=== PATIENT | female | born 1990 ===

== ENCOUNTER 2019-06-19 13:11 | Outpatient (CLI) | payer MEDICAID ==
--- NOTE | 2019-06-19 17:30 | Consultation ---
DATE OF CONSULTATION: 06/19/2019 CONSULTING PHYSICIAN: Leoncio Obrien M.D. CHIEF COMPLAINT: Abdominal pain. HISTORY OF PRESENT ILLNESS: This is a pleasant 29-year-old female without any significant past medical history, presented to us with complaint of chronic lower quadrant abdominal pain. , but sometimes gets worse. The patient cannot pinpoint exactly what makes it worse. Apparently she has been admitted to the emergency room few times and a CT of the abdomen and pelvis was negative. She has been seen by the lens silverer and the pelvic examination showed to be negative. The patient apparently was diagnosed with possible irritable bowel syndrome by the primary care physician and was given treatment for that, which did not work. The patient is referred to us for evaluation of right lower quadrant abdominal pain. PAST MEDICAL HISTORY: None. PAST SURGICAL HISTORY: None. MEDICATIONS: None. FAMILY HISTORY: Noncontributory. SOCIAL HISTORY: The patient denies any tobacco, alcohol, or drug abuse. PHYSICAL EXAMINATION: GENERAL: Well-developed female, in no acute distress. HEENT: Normocephalic, atraumatic. Sclerae anicteric. NECK: Supple. No evidence of obvious lymphadenopathy. CARDIOVASCULAR: Regular rate and rhythm. Plus S1 and S2. No obvious murmur. LUNGS: Clear to auscultation bilaterally. ABDOMEN: Positive bowel sounds. Soft. Minimal tenderness to palpation in right lower quadrant. No rebound. No guarding. No peritoneal sign. EXTREMITIES: No cyanosis, no clubbing, no edema. ASSESSMENT AND PLAN: This is a 29-year-old female with persistent right lower quadrant abdominal pain with negative workup with other physicians. The patient had a pelvic examination by SALES REPRESENTATIVE, which has been negative. The patient had a CT of the abdomen and pelvis in the ER, which was negative. She has been tried for treatment for IBS by the primary care physician, which has not helped her. Plan will be to do a colonoscopy to rule out colitis, Crohn disease of terminal ileum or right colon causing her symptoms. The patient was given information about colonoscopy. Risks and benefits of procedure were explained to her. She was given the prep and we will schedule when authorization is obtained. Leoncio Vosoghi, M.D. DR: [place] JOB#: [id number] CC:
[2019-06-24] MEDS ORDERED: IBGARD90 MG PO (14:17)
[2019-06-24] MEDS ORDERED: IMODIUM2 MG ORAL (14:17)
[2019-06-24] MEDS ORDERED: FERROUS SULFAT325 MG ORAL (14:17)
[2019-06-24] MEDS ORDERED: PAMELOR10 MG ORAL (14:17)
[2019-06-24] MEDS ORDERED: PRENATABS RX T1 EACH PO (14:17)
[2019-06-24] MEDS ORDERED: DICYCLOMINE HCL10 MG ORAL (14:17)
== END 2019-06-19 15:11 | disposition home or self-care (01) ==
LOC: PAN 13:11
DX: R10.9 Unspecified abdominal pain (principal)
CPT/HCPCS: G0463

== ENCOUNTER 2019-08-07 13:55 | Outpatient (CLI) | payer MEDICAID ==
[~2019-08-07 13:55] MED LIST: DICYCLOMINE HCL10 MG ORAL; FERROUS SULFAT325 MG ORAL; IBGARD90 MG PO; IMODIUM2 MG ORAL; PAMELOR10 MG ORAL; PRENATABS RX T1 EACH PO
--- NOTE | 2019-08-07 14:21 | General Progress Note ---
Assessment/Plan Assessment/Plan: abd pain s/p colonoscopy CT reviewed patient to fu with WELDING ESTIMATOR Kayayl prn Subjective ROS Limited/Unobtainable: Yes Allergies: Coded Allergies: No Known Allergies (Unverified , 06/24/19) Objective General Appearance: alert EENT: normal ENT inspection Neck: supple Cardiovascular: normal rate Respiratory/Chest: lungs clear Abdomen: soft, hypoactive bowel sounds, tender Extremities: non-tender Leoncio Obrien MD Aug 07, 2019 14:21
[2019-08-07 14:29] VITALS: BP 127/79
== END 2019-08-07 15:06 | disposition home or self-care (01) ==
LOC: PAN 13:55
DX: R10.9 Unspecified abdominal pain (principal)
CPT/HCPCS: 99212